=== PATIENT | male | born 1965 | race Two or more races ===

== ENCOUNTER 2024-09-15 07:49 | Emergency (ER) | payer OTHER ==
[~2024-09-15] VITALS: Ht 177.8 cm; Wt 106.6 kg
[2024-09-15 07:58] VITALS: BP 135/90; O2SAT 97
[2024-09-15] MEDS ORDERED: ORPHENADRINE CITRATE 30 MG/ML AMPUL IM ONE (09:00)
[2024-09-15] MEDS ORDERED: KETOROLAC TROMETHAMINE 60 MG VIAL IM ONE ×2 (09:00→09:06)
[2024-09-15] MEDS ORDERED: ORPHENADRINE CITRATE 30 MG/ML AMPUL ONE (09:06)
[2024-09-15 09:31] LABS: HEMATOCRIT 52.4 % (39.0-48.0); HEMOGLOBIN 17.9 g/dL (13-16.00); MEAN CELL VOLUME 94.2 fL (80.0-100.00); MEAN CORPUSCULAR HEMOGLOBIN 32.2 pg (27.00-32.0); MEAN CORPUSCULAR HGB CONC 34.1 g/dl (32.0-36.0); PLATELET COUNT 237 K/uL (150-450); RED BLOOD COUNT 5.56 M/uL (4.00-6.00); RED CELL DISTRIBUTION WIDTH 14.6 % (11.5-14.5)
[2024-09-15 09:53] LABS: CREATININE SERUM 0.93 mg/dL (0.70-1.30); GFR 83.45; POTASSIUM 4.06 mEq/L (3.5-5.1)
[2024-09-15] MEDS ORDERED: DICLOFENAC SODI75 MG PO (10:03)
== END 2024-09-15 10:39 | disposition home or self-care (01) ==
LOC: ER 07:51
PROVIDERS: General Practice
DX: M54.2 Cervicalgia (principal); M94.0 Chondrocostal junction syndrome [Tietze]; R07.89 Other chest pain